=== PATIENT | male | born 2000 | race Caucasian/White ===

== ENCOUNTER 2019-01-18 01:27 | Emergency (ER) | payer BC ==
--- NOTE | 2019-01-18 01:57 | EDPHYS ---
Physician Documentation [facility] Name: Clark Luu Age: 18 yrs Sex: Male : 2000 Arrival Date: 01/18/2019 Time: 01:33 Bed 13 Private MD: ED Physician Rodri Pelletier HPI: 01/18 01:46 This 18 yrs old Male presents to ER via Ambulatory with complaints of Animal jmm Bite. 01:46 by a raccoon. Onset: The symptoms/episode began/occurred acutely, at 00:30. Animal jmm information: Patient/Caregiver unable to provide information related to the animal. This is a 18 year old male with a history of ADD/ADHD that presents to the ED with complaints of raccoon bite approx 1 hour prior to arrival. Patient states the raccoon was squirming while being held and bit him. Patient states the raccoon did not appear ill. Patient states cleaning the wound immediately. . Historical: - Allergies: 01:37 No Known Allergies; ed1 - Home Meds: 01:37 Vyvanse 20 mg oral cap once daily [Active]; ed1 - PMHx: 01:37 ADD/ADHD; ed1 - PSHx: 01:37 None; ed1 - Immunization history:: Adult Immunizations up to date. - Social history:: Smoking status: Patient uses tobacco products, smokes one-half pack cigarettes per day. - Ebola Screening: : Patient negative for fever greater than or equal to 101.5 degrees Fahrenheit, and additional compatible Ebola Virus Disease symptoms Patient denies exposure to infectious person Patient denies travel to an Ebola-affected area in the 21 days before illness onset No symptoms or risks identified at this time. ROS: 02:01 Constitutional: Negative for fever, chills, and weight loss, Cardiovascular: Negative jmm for chest pain, palpitations, and edema, Respiratory: Negative for shortness of breath, cough, wheezing, and pleuritic chest pain. 02:01 MS/extremity: Positive for injury or acute deformity. 02:01 Skin: Positive for puncture. 02:01 All other systems are negative. Exam: 02:01 Constitutional: This is a well developed, well nourished patient who is awake, alert, jmm and in no acute distress. Head/Face: atraumatic. Eyes: EOMI, no conjunctival erythema appreciated ENT: Moist Mucus Membranes Neck: Trachea midline, Supple Chest/axilla: Normal chest wall appearance and motion. Cardiovascular: Regular rate and rhythm. No edema appreciated Respiratory: Normal respirations, no respiratory distress appreciated Abdomen/GI: Non distended, soft Back: Normal ROM 02:01 Skin: small puncture noted to the dorsum of the left 3rd distal finger, no surrounding erythema or induration appreciated. 02:01 Neuro: Orientation: is normal, Mentation: is normal, Memory: is normal. 02:01 Psych: Behavior/mood is pleasant, cooperative. Vital Signs: 01:37 BP 137 / 66; Pulse 83; Resp 16; Temp 98(O); Pulse Ox 98% on R/A; Weight 73.94 kg; ed1 Height 5 ft. 11 in. (180.34 cm); Pain 0/10; 01:37 Body Mass Index 22.73 (73.94 kg, 180.34 cm) ed1 MDM: 01:43 Patient medically screened. phi 01:55 Data reviewed: vital signs, nurses notes. Counseling: I had a detailed discussion with phi the patient and/or guardian regarding: the historical points, exam findings, and any diagnostic results supporting the discharge/admit diagnosis, the need for outpatient follow up, to return to the emergency department if symptoms worsen or persist or if there are any questions or concerns that arise at home. ED course: Patient prescribed oral antibiotics and advised of the need for rabies immunoglobin therapy. patient understood and agrees with the plan of care. . Administered Medications: 02:12 Drug: Tetanus-Diphtheria Toxoid Adult 0.5 ml {City Constable: [employer]. Exp: ed1 10/11/2020. Lot #: [id number]. } Route: IM; Site: left deltoid; 02:14 Follow up: Response: Medication administered at discharge. ed1 Disposition: 01/18/19 01:56 Discharged to Home. Impression: Animal Bite. - Condition is Stable. - Discharge Instructions: Animal Bite. - Prescriptions for Augmentin 875- 125 mg Oral Tablet - take 1 tablet by ORAL route every 12 hours for 10 days; 20 tablet. - Medication Reconciliation Form, Thank You Letter, Antibiotic Education, Prescription Opioid Use form. - Follow up: Private Physician; When: 2 - 3 days; Reason: Recheck today's complaints, Continuance of care, Re-evaluation by your physician. Addendum: 01/22/2019 16:33 Co-signature as Attending Physician, Rodri Pelletier MD I agree with the assessment and t w4 plan of care. Signatures: Camron Romero PA PA jmm Riggs, Erika, RN RN ed1 Rodri Pelletier MD MD tw4 Corrections: (The following items were deleted from the chart) 01/18 02:14 01:56 01/18/2019 01:56 Discharged to Home. Impression: Animal Bite. Condition is ed1 Stable. Forms are Medication Reconciliation Form, Thank You Letter, Antibiotic Education, Prescription Opioid Use. Follow up: Private Physician; When: 2 - 3 days; Reason: Recheck today's complaints, Continuance of care, Re-evaluation by your physician. phi
--- NOTE | 2019-01-18 01:57 | ER ---
Nurse's Notes [facility] Name: Clark Luu Age: 18 yrs Sex: Male : 2000 Arrival Date: 01/18/2019 Time: 01:33 Bed 13 Private MD: Diagnosis: Animal Bite Presentation: 01/18 01:36 Presenting complaint: Patient states: I was holding a baby raccoon and it bit me on my ed1 left middle finger. I need a rabies shot. Transition of care: patient was not received from another setting of care. Onset of symptoms was January 18, 2019. Risk Assessment: Do you want to hurt yourself or someone else? Patient reports no desire to harm self or others. Initial Sepsis Screen: Does the patient meet any 2 criteria? No. Patient's initial sepsis screen is negative. Does the patient have a suspected source of infection? No. Patient's initial sepsis screen is negative. Care prior to arrival: None. 01:36 Method Of Arrival: Ambulatory ed1 01:36 Acuity: MADELIN 5 ed1 Triage Assessment: 01:37 Bite description: bite sustained to dorsal aspect of distal phalanx of left middle ed1 finger is from animal, was sustained 1-2 hours ago. by a raccoon animal information: vaccination(s) is not applicable. General: Appears in no apparent distress. Behavior is calm, cooperative, Pt texting on phone during triage. Pain: Complains of pain in dorsal aspect of distal phalanx of left middle finger Pain currently is 0 out of 10 on a pain scale. Derm: Skin is intact, is healthy with good turgor, Skin is dry, Skin is normal, Skin temperature is warm. Musculoskeletal: Circulation, motion, and sensation intact. Range of motion: intact in all extremities, Swelling absent. Historical: - Allergies: 01:37 No Known Allergies; ed1 - Home Meds: 01:37 Vyvanse 20 mg oral cap once daily [Active]; ed1 - PMHx: 01:37 ADD/ADHD; ed1 - PSHx: 01:37 None; ed1 - Immunization history:: Adult Immunizations up to date. - Social history:: Smoking status: Patient uses tobacco products, smokes one-half pack cigarettes per day. - Ebola Screening: : Patient negative for fever greater than or equal to 101.5 degrees Fahrenheit, and additional compatible Ebola Virus Disease symptoms Patient denies exposure to infectious person Patient denies travel to an Ebola-affected area in the 21 days before illness onset No symptoms or risks identified at this time. Screenin:12 Abuse screen: Denies threats or abuse. Denies injuries from another. Nutritional ed1 screening: No deficits noted. Tuberculosis screening: No symptoms or risk factors identified. Fall Risk None identified. Assessment: 02:12 General: Appears in no apparent distress. Behavior is calm, cooperative. Pain: Denies ed1 pain. Neuro: Level of Consciousness is awake, alert, obeys commands, Oriented to person, place, time, situation. Cardiovascular: Denies chest pain, Heart tones S1 S2 present. Respiratory: Airway is patent Respiratory effort is even, unlabored, Respiratory pattern is regular, symmetrical, Breath sounds are clear bilaterally. GI: No signs and/or symptoms were reported involving the gastrointestinal system. : No signs and/or symptoms were reported regarding the genitourinary system. EENT: No signs and/or symptoms were reported regarding the EENT system. Derm: Skin is intact, is healthy with good turgor, Skin is dry, Skin is pink, warm \T\ dry. Skin temperature is warm. Musculoskeletal: Circulation, motion, and sensation intact. Range of motion: intact in all extremities. Injury Description: Bite sustained to dorsal aspect of distal phalanx of left middle finger caused by a raccoon, is from animal, was sustained 1-2 hours ago. Vital Signs: 01:37 BP 137 / 66; Pulse 83; Resp 16; Temp 98(O); Pulse Ox 98% on R/A; Weight 73.94 kg; ed1 Height 5 ft. 11 in. (180.34 cm); Pain 0/10; 01:37 Body Mass Index 22.73 (73.94 kg, 180.34 cm) ed1 ED Course: 01:33 Patient arrived in ED. ag3 01:36 Triage completed. ed1 01:37 Arm band placed on left wrist. ed1 01:39 Camron Romero PA is PHCP. jmm 01:42 Rodri Pelletier MD is Attending Physician. [facility] 02:12 Patient has correct armband on for positive identification. ed1 02:12 No provider procedures requiring assistance completed. Patient did not have IV access ed1 during this emergency room visit. Administered Medications: 02:12 Drug: Tetanus-Diphtheria Toxoid Adult 0.5 ml {Brake Mechanic: [employer]. Exp: ed1 10/11/2020. Lot #: [id number]. } Route: IM; Site: left deltoid; 02:14 Follow up: Response: Medication administered at discharge. ed1 Outcome: 01:56 Discharge ordered by MD. yip 02:12 Discharged to home ambulatory. ed1 02:12 Condition: good 02:12 Discharge instructions given to patient, Instructed on discharge instructions, follow up and referral plans. medication usage, Demonstrated understanding of instructions, follow-up care, medications, Prescriptions given X 1. 02:14 Patient left the ED. ed1 Signatures: Camron Romero PA PA jmm Riggs, Erika, RN RN ed1 Aparna Camejo ag3
[2019-01-18] MEDS ORDERED: TETANUS & DIPHTHERIA TOX,ADULT 0.5 ML VIAL ONE (02:22)
== END 2019-01-18 02:14 | disposition home or self-care (01) ==
LOC: ER 01:27
DX: S61.253A Open bite of left middle finger without damage to nail, initial encounter (principal); W55.51XA Bitten by raccoon, initial encounter; Z23 Encounter for immunization; F90.9 Attention-deficit hyperactivity disorder, unspecified type
CPT/HCPCS: 90471; 90714; 99283

== ENCOUNTER 2020-02-23 14:45 | Emergency (ER) | payer BC ==
--- NOTE | 2020-02-23 16:41 | RAD REPORT ---
EXAM DESCRIPTION: RAD - Ankle Left 3 View -02/23/2020 4:17 pm CLINICAL HISTORY: Left ankle pain status post injury FINDINGS: No fracture or dislocation is seen.
--- NOTE | 2020-02-23 16:43 | RAD REPORT ---
EXAM DESCRIPTION: RAD - Foot Left 3 View - 02/23/2020 4:17 pm CLINICAL HISTORY: Left Foot pain status post fall FINDINGS: No fracture or dislocation is seen.
--- NOTE | 2020-02-23 16:44 | RAD REPORT ---
EXAM DESCRIPTION: RAD - Knee Left 3 View - 02/23/2020 4:17 pm CLINICAL HISTORY: Left knee pain status post injury FINDINGS: No fracture or dislocation is seen.
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
[2020-02-23 17:58] VITALS: BP 125/74; TEMP 99; O2SAT 99
== END 2020-02-23 17:43 | disposition home or self-care (01) ==
LOC: ER 14:45
DX: M25.572 Pain in left ankle and joints of left foot (principal); F90.9 Attention-deficit hyperactivity disorder, unspecified type; Z72.0 Tobacco use
CPT/HCPCS: 99283

== ENCOUNTER 2023-02-24 20:37 | Emergency (ER) | payer BC ==
--- OUTSIDE RECORDS SUMMARY | 2023-02-24 20:40 | XMS REPORT | Continuity of Care Document ---
:2000 Author Organization [facility] t Address [address] [place] [address] Care Team Providers Name Role Phone Jaky Huertas Primary Care Physician Cheko Sahni DO Attending Clinician CHEKO SAHNI Attending Clinician Unavailable Problems This patient has no known problems. Allergies, Adverse Reactions, Alerts Allergy Allergy Status Severity Reaction(s) Onset Inactive Treating Comm ents Source Name Type Date Date Clinician NO KNOWN Drug Active Univers ALLERGIE Class ity of [facility] Social History Social Habit Start Date Stop Date Quantity Comments Source Gender identity [facility] Sexual orientation [facility] Sex Assigned At [birth year] [facility] versity [facility] 00:00:00 00:00:00 Medical Branch Smoking Status Start Date Stop Date Source Tobacco smoking consumption [facility] Branch Medications Ordered Filled Start Stop Current Ordering Indication Dosage Frequency Signature Comments Components Source Medication Medication Date Date Medication? Clinician (SIG) Name Name NaCl 0.9% 2022-0 2023- No 1000mL at 999 Uni vers (NS) bolus 7-11 07-11 mL/hr, ity of infusion 19:15: 21:27 1,000 mL, Nathan as 1,000 mL 00 :00 IV Medical Infusion, Branch ONCE, 1 dose, On Mon02/21/23 at 1415, STAT sucralfate 2022-0 Yes [id number] 1g Take 1 Univers 1 gram 7-11 tablet by ity of tablet 00:00: mouth [place] 00 before Medical meals and Branch at bedtime. dicyclomine Yes [id number] 10mg Take 1 Univers (BENTYL) 10 7-11 capsule by it y of mg capsule 00:00: mouth [place] 00 every 8 Medical (eight) Branch hours as needed for Abdominal pain. ondansetron Yes [id number] 4mg Take 1 Univers 4 mg 7-11 tablet by ity of disintegrat 00:00: mouth [place] ing tablet 00 every 8 Medica l (eight) Branch hours as needed for Nausea and Vomiting (N/V). omeprazole 2022- Yes [id number] 20mg Take 1 Univers 20 mg 7-11 08-11 capsule by ity of capsule 00:00: 04:59 mouth in [place] 00 :00 the Medical morning Branch for 30 days. Vital Signs Vital Name Observation Time Observation Value Comments Source Systolic blood 2023-02-21 21:28:00 112 mm[Hg] [facility] Diastolic blood 2023-02-21 21:28:00 55 mm[Hg] [facility] Heart rate 2023-02-21 21:28:00 98 /min [facility] Respiratory rate 2023-02-21 21:28:00 19 /min [facility] Oxygen saturation in 2023-02-21 21:28:00 99 /min [facility] Arterial blood by [facility] Pulse oximetry [place] Body temperature 2023-02-21 18:58:[address] [facility] Body height 2023-02-21 18:58:00 182.9 cm [facility] Body weight 2023-02-21 18:58:00 94.348 kg [facility] BMI 2023-02-21 18:58:00 28.21 kg/m2 [facility] Procedures Procedure Date / Time Performed Performing Clinician Sourc e TROPONIN I 2023-02-21 19:42:00 Sahni, [facility] COMP. METABOLIC PANEL 2023-02-21 19:42:00 Cheko Sahni [facility] ([id number]) [facility] CBC WITH DIFF 2023-02-21 19:42:00 Singer [facility] URINALYSIS 2023-02-21 19:42:00 Singer [facility] NOTICE OF PRIVACY 2023-02-21 18:54:28 Doctor Unassigned, No [facility] PRACTICES Name Medical Branch CONSENT/REFUSAL FOR 2023-02-21 18:53:26 [facility] AND Name Medical Branch TREATMENT Encounters Start End Encounter Admission Attending Care Care Encounter Source Date/Time Date/Time Type Type Clinicians Facility Department ID 2023-02-21 2023-02-21 [id number] Univers 13:59:00 16:30:00 Cheko JONES [id number] i amy [facility] [id number] [facility] [id number] [facility] 084 Branch 2023-02-21 2023-02-21 Emergency X [facility] ERT [id number] Univers 13:59:00 16:30:00 CHEKO chris [facility] Results Test Description Test Time Test Comments Results Result Comments Source TROPONIN I 2023-02-21 20:38:24 Test Item Value Reference Range Interpretation Comme nts TROPONIN I (test code = 1818518025) 0.034 ng/mL <=0.034 BRAD (test code = BRAD) Reference (Normal) Range (defined by the 99th percentile reference limit): <= 0.034 ng/mL Note: Cardiac troponin begins to rise 3-4 hours after the onset of ischemia. Repeat in 4-6 hours if the sample was drawn within 3-4 hours of the onset of the symptom and found normal. Diagnosis of myocardial injury is made with acute changes in cTn concentrations with at least one serial sample above the 99th percentile upper reference limit (URL), taken together with the patient's clinical presentation. Biotin has been reported to cause a negative bias, interpret results relative to patient's use of biotin. Lab Interpretation (test code = Normal 79894-6) [facility][id number][facility]2023-02-21 20:27:04 Test Item Value Reference Range Interpretation Comments NA (test code = 136 mmol/L 135-145 3763973891) K (test code = 4.9 mmol/L 3.5-5.0 0914497559) CL (test code = 93 mmol/L 98-108 L 6642857364) CO2 TOTAL (test code = 32 mmol/L 23-31 H 2048673492) AGAP (test code = 11 2-16 2921452411) BUN (test code = 13 mg/dL 7-23 0050445160) GLUCOSE (test code = 91 mg/dL 70-110 5048122788) CREATININE (test code = 0.88 mg/dL 0.60-1.25 6110395412) TOTAL BILI (test code = 1.0 mg/dL 0.1-1.0 8045504191) CALCIUM (test code = 10.7 mg/dL 8.6-10.6 H 1939257197) T PROTEIN (test code = 7.9 g/dL 6.3-8.2 5945356079) ALBUMIN (test code = 4.8 g/dL 3.5-5.0 1576058911) ALK PHOS (test code = 38 U/L 34-122 4462013045) ALTv (test code = 32 U/L 5-50 1742-6) AST(SGOT) (test code = 37 U/L 13-40 3386098871) eGFR (test code = 106.4 mL/min/1.73m2 9438981698) BRAD (test code = BRAD) Association of Glomerular Filtration Rate (GFR) and Staging of Kidney Disease* + --+ --+ ------+| GFR (mL/min/1.73 m2) ?| With Kidney Damage ?| ?Without Kidney Damage+ --------+ --------+ +| ?>90 ?| ?Stage one ?| ? Normal ?+ ---+ ---+ -------+| ?60-89 ?| ?Stage two ?| ? Decreased GFR ? + --+ --+ ------+| ?30-59 ?| ?Stage three ?| ? Stage three ? + --+ --+ ------+| ?15-29 ?| ?Stage four ? | ? Stage four ?+ ---+ ---+ -------+| ?<15 (or dialysis) ? ?| ?Stage five ? | ? Stage five ?+ ---+ ---+ -------+ *Each stage assumes the associated GFR level has been in effect for at least three months. ?Stages 1 to 5, with or without kidney disease, indicate chronic kidney disease. Notes: Determination of stages one and two (with eGFR >59mL/min/1.73 m2) requires estimation of kidney damage for at least three months as defined by structural or functional abnormalities of the kidney, manifested by either:Pathological abnormalities or Markers of kidney damage (including abnormalities in the composition of the blood or urine or abnormalities in imaging tests). Lab Interpretation Abnormal (test code = 25452-1) [facility] WITH [id number] 20:18:00 Test Item Value Reference Range Interpretation Comments WBC (test code = 10.59 See_Comment [Automated 7906-2) message] The sy stem which generated this result transmitted reference range : 4.20 - 10.70 10*3/?L. The reference range was not used to interpret this result as normal/abnormal . RBC (test code = 5.26 See_Comment [Automated 519-8) message] The sy stem which generated this result transmitted reference range : 4.26 - 5.52 10*6/?L. The reference range was not used to interpret this result as normal/abnormal . HGB (test code = 16.2 g/dL 12.2-16.4 718-7) HCT (test code = 49.6 % 38.4-49.3 H 4544-3) MCV (test code = 94.3 fL 81.7-95.6 787-2) MCH (test code = 30.8 pg 26.1-32.7 785-6) MCHC (test code = 32.7 g/dL 31.2-35.0 786-4) RDW-SD (test code = 47.2 fL 38.5-51.6 16959-2) RDW-CV (test code = 13.5 % 12.1-15.4 788-0) PLT (test code = 385 See_Comment H [Automated 777-3) message] The sy stem which generated this result transmitted reference range : 150 - 328 10*3/ ?L. The reference r ravinder was not used to interpret this result as normal/abnormal . MPV (test code = 9.3 fL 9.8-13.0 L 61886-9) NRBC/100 WBC (test 0.0 See_Comment [Automat ed code = 4783264623) message] The system which generated this result transmitted reference range : 0.0 - 10.0 /100 WBCs. The refer ence range was not u sed to interpret th is result as normal/abnormal . NRBC x10^3 (test code See_Comment [Auto mated = 7700890812) message] The s ystem which generated this result transmitted reference range : 10*3/?L. The reference range was not used to interpret this result as normal/abnormal . GRAN MAT (NEUT) % 70.5 % (test code = 770-8) IMM GRAN % (test code 0.30 % = 2518149188) LYMPH % (test code = 20.3 % 736-9) MONO % (test code = 7.2 % 5905-5) EOS % (test code = 1.0 % 713-8) BASO % (test code = 0.7 % 706-2) GRAN MAT x10^3(ANC) 7.47 10*3/uL 1.99-6.95 H (test code = 5231175144) IMM GRAN x10^3 (test 0.03 10*3/uL 0.00-0.06 code = 9415579818) LYMPH x10^3 (test code 2.15 10*3/uL 1.09-3.23 = 731-0) MONO x10^3 (test code 0.76 10*3/uL 0.36-1.02 = 742-7) EOS x10^3 (test code = 0.11 10*3/uL 0.06-0.53 711-2) BASO x10^3 (test code 0.07 10*3/uL 0.01-0.09 = 704-7) Lab Interpretation Abnormal (test code = 27897-5) [facility]"
[2023-02-24] MEDS ORDERED: MORPHINE 4 MG/ML SYR ONE (21:53)
[2023-02-24] MEDS ORDERED: ONDANSETRON 4 MG/2 ML VIAL ONE (21:53)
[2023-02-24] MEDS ORDERED: NA CHLORIDE 0.9% 1,000 ML ONE (21:54)
[2023-02-24 21:56] LABS: Absolute Lymphocytes (CBC) 1.6 K/uL (0.7-4.9); Hematocrit 43.7 % (39.6-49.0); Lymphocytes % 16.2 % (15.3-44.8); MCV 92.4 fL (80-100); MPV 7.5 fL (7.6-11.3); RBC Red Blood Cell Count 4.73 M/uL (4.33-5.43)
[2023-02-24 22:13] LABS: Albumin 3.4 g/dL (3.4-5.0); Bilirubin Total 0.3 mg/dL (0.2-1.0); Potassium 3.8 mEq/L (3.5-5.1); Protein, Total 7.1 g/dL (6.4-8.2)
--- NOTE | 2023-02-24 23:12 | RAD REPORT ---
EXAM DESCRIPTION: CTAbdomen Pelvis W Contrast - 02/24/2023 10:27 pm CLINICAL HISTORY: RLQ PAIN COMPARISON: No comparisons TECHNIQUE: CT of the abdomen and pelvis was performed. All CT scans are performed using dose optimization technique as appropriate and may include automated exposure control or mA/KV adjustment according to patient size. FINDINGS: Lower chest: No acute abnormality. Liver: No acute abnormality or suspicious lesions. Biliary: No biliary ductal dilatation. Stomach: No significant focal abnormality. Duodenum: No significant focal abnormality. Pancreas: No significant abnormality. Spleen: No significant abnormality. Adrenal: No suspicious lesions. Kidney/ureter: No hydronephrosis. No renal calculi. Too small to characterize and/or benign appearing renal lesions are noted. Retroperitoneum: No retroperitoneal adenopathy. Vascular: No aneurysm. Bowel: Normal appendix.. Peritoneum: No ascites or free air. Enlarged ileocolic mesenteric lymph nodes Bladder: Grossly unremarkable. Reproductive: No adnexal masses. Bones: No acute fracture. Other: n/a IMPRESSION: No acute intra-abdominal or pelvic finding. Normal appendix. Nonspecific enlarged ileoco lic mesenteric lymph nodes. Mesenteric adenitis is a consideration .
[2023-02-24 23:28] LABS: Specific Gravity > 1.030 (1.005-1.030); Urine Bacteria None Seen /HPF (<20); Urine Bilirubin NEGATIVE (Negative); Urine Blood Trace (Negative); Urine Clarity Clear (Clear); Urine Color Light-Yellow (Yellow); Urine Glucose NEGATIVE (Negative); Urine Mucus Slight /HPF (None Seen); Urine Protein NEGATIVE (Negative); Urine RBC <5 /HPF (None Seen); Urine Urobilinogen Normal (Normal); Urine pH 6.5 (5.0-7.0)
--- NOTE | 2023-02-24 23:46 | ER ---
Nurse's Notes [facility] Name: Clark Luu Age: 22 yrs Sex: Male : 2000 Arrival Date: 02/24/2023 Time: 20:37 Bed 15 Private MD: Diagnosis: Nonspecific mesenteric lymphadenitis Presentation: 02/24 21:50 Chief complaint: Patient states: right lower quadrant pain X1 week and worsening. seen lg3 at [facility] ER wed. diagnosed with acid reflux. started dicyclomine, sucralfate, and Prilosec but nothings working. Coronavirus screen: Client denies travel out of the [place] in the last 14 days. At this time, the client does not indicate any symptoms associated with coronavirus-19. Ebola Screen: No symptoms or risks identified at this time. Initial Sepsis Screen: Does the patient meet any 2 criteria? No. Patient's initial sepsis screen is negative. Does the patient have a suspected source of infection? No. Patient's initial sepsis screen is negative. Risk Assessment: Do you want to hurt yourself or someone else? Patient reports no desire to harm self or others. Onset of symptoms is unknown. 21:50 Method Of Arrival: Ambulatory lg3 21:50 Acuity: MADELIN 3 lg3 Triage Assessment: 21:54 General: Appears in no apparent distress. uncomfortable, Behavior is calm, cooperative. lg3 Pain: Complains of pain in right lower quadrant Pain currently is 9 out of 10 on a pain scale. Noted to be guarding, moaning, resistant to movement. EENT: No deficits noted. No signs and/or symptoms were reported regarding the EENT system. Neuro: No deficits noted. Bunch Agitation-Sedation Scale (RASS): 0 - Alert and Calm Level of Consciousness is awake, alert, obeys commands, Oriented to person, place, time, situation. Cardiovascular: No deficits noted. Denies chest pain, shortness of breath. Respiratory: No deficits noted. Airway is patent Respiratory effort is even, unlabored, Respiratory pattern is regular, symmetrical. GI: Abdomen is flat, non-distended, Abd is soft X 4 quads Abdomen is tender to palpation in right lower quadrant Abdomen has rebound tenderness in right lower quadrant Guarding noted in right lower quadrant. : No deficits noted. No signs and/or symptoms were reported regarding the genitourinary system. Derm: No deficits noted. No signs and/or symptoms reported regarding the dermatologic system. Musculoskeletal: No deficits noted. No signs and/or symptoms reported regarding the musculoskeletal system. Circulation, motion, and sensation intact. Range of motion: intact in all extremities. Historical: - Allergies: 21:54 No Known Allergies; lg3 - Home Meds: 21:54 Adderall XR Oral [Active]; lg3 - PMHx: 21:54 ADD/ADHD; lg3 - PSHx: 21:54 None; lg3 - Immunization history:: Adult Immunizations up to date, Client reports having NOT received the Covid vaccine. - Social history:: Smoking status: Reported history of juuling and/or vaping. Patient uses alcohol, occasionally. Screenin:58 [facility] ED Fall Risk Assessment (Adult) History of falling in the last 3 months, rv including since admission No falls in past 3 months (0 pts) Confusion or Disorientation No (0 pts) Intoxicated or Sedated No (0 pts) Impaired Gait No (0 pts) Mobility Assist Device Used No (0 pt) Altered Elimination No (0 pt) Score/Fall Risk Level 0 - 2 = Low Risk Oriented to surroundings, Maintained a safe environment, Educated pt \T\ family on fall prevention, incl call for assistance when getting out of bed, Assessed \T\ reinforced patient's understanding of fall precautions, Provided non-skid footwear, Hourly rounding (assess needs \T\ fall precautionary measures) done, Used ambulatory aids as needed (educated on \T\ assisted with), Used gait belt as appropriate. Abuse screen: Denies threats or abuse. Denies injuries from another. Nutritional screening: No deficits noted. Tuberculosis screening: No symptoms or risk factors identified. Assessment: 22:58 General: Appears in no apparent distress. Behavior is calm, cooperative. Pain: rv Complains of pain in abdomen. Neuro: Level of Consciousness is awake, alert, obeys commands, Oriented to person, place, time, situation. Cardiovascular: Capillary refill < 3 seconds. Respiratory: Airway is patent. GI: Bowel sounds present X 4 quads. Reports lower abdominal pain, upper abdominal pain, nausea, vomiting. GI: Abdomen is flat, Abd is soft and non tender X 4 quads. : No signs and/or symptoms were reported regarding the genitourinary system. Vital Signs: 21:50 BP 131 / 77; Pulse 94; Resp 17 S; Temp 98.8(O); Pulse Ox 99% on R/A; Weight 95.25 kg lg3 (R); Height 6 ft. 0 in. (R); Pain 9/10; 21:50 Body Mass Index 28.48 (95.25 kg, 182.88 cm) lg3 21:50 Pain Scale: Adult lg3 ED Course: 20:39 Patient arrived in ED. kd3 20:48 Taylor Gama PA-C is PHCP. sb4 20:48 Virginia Sotelo MD is Attending Physician. sb4 21:25 Radiology exam delayed due to lab results not completed at this time. (BUN/Creatinine) eh4 IV insertion attempt and/or patient not having appropriate IV at this time. 21:47 Inserted saline lock: 20 gauge in left antecubital area, using aseptic technique. Blood oe collected. 21:48 CBC with Diff Sent. oe 21:48 CMP Sent. oe 21:48 Lipase Sent. oe 21:54 Triage completed. lg3 21:54 Arm band placed on right wrist. lg3 22:58 Isrrael Montes, RN is Primary Nurse. rv 22:59 No provider procedures requiring assistance completed. rv 22:59 Patient has correct armband on for positive identification. Placed in gown. Bed in low rv position. Call light in reach. Side rails up X 1. Client placed on continuous cardiac and pulse oximetry monitoring. NIBP monitoring applied. 23:07 CT Abd/Pelvis - IV Contrast Only In Process Unspecified. EDMS 23:45 Myke Wise MD is Referral Physician. sb4 23:45 Referral Physician role handed off by Myke Wise MD sb4 02/25 00:01 IV discontinued, intact, bleeding controlled, No redness/swelling at site. Pressure rv dressing applied. 00:01 Provided Education on: VIRUS. rv Administered Medications: 02/24 21:49 Drug: NS 0.9% IV 1000 ml Route: IV; Rate: 1 bolus; Site: left antecubital; kd3 02/25 00:01 Follow up: IV Status: Completed infusion; IV Intake: 1000ml rv 02/24 21:49 Drug: Ondansetron IVP 4 mg Route: IVP; Site: left antecubital; kd3 02/25 00:01 Follow up: Response: No adverse reaction; Marked relief of symptoms rv 02/24 21:50 Drug: morphine IVP or IV 4 mg Route: IVP; Infused Over: 4 mins; Site: left antecubital; kd3 02/25 00:01 Follow up: Response: No adverse reaction; Marked relief of symptoms rv Medication: 02/24 22:59 VIS not applicable for this client. rv Intake: 02/25 00:01 IV: 1000ml; Total: 1000ml. rv Outcome: 02/24 23:45 Discharge ordered by MD. moreira 02/25 00:01 Discharged to home ambulatory, with family. rv Condition: good Discharge instructions given to patient, Instructed on discharge instructions, follow up and referral plans. medication usage, Demonstrated understanding of instructions, follow-up care, medications, Prescriptions given X 1. 00:02 Patient left the ED. rv Signatures: Dispatcher [employer] EDMS Gavino Bush Ronaldo, RN RN Sadaf Garcia, MYRON SANCHES lg3 Lona Romero RN RN kd3 [place] [id number] Taylor Gama PA-Johnie PAZoey sb4
--- NOTE | 2023-02-24 23:46 | EDPHYS ---
Physician Documentation [facility] Name: Clark Luu Age: 22 yrs Sex: Male : 2000 Arrival Date: 02/24/2023 Time: 20:37 Bed 15 Private MD: ED Physician Virginia Sotelo HPI: 02/24 22:09 This 22 yrs old Male presents to ER via Ambulatory with complaints of Abdominal Pain, sb4 Nausea/Vomiting. 22:09 The patient presents with abdominal pain right lower quadrant. Onset: The sb4 symptoms/episode began/occurred last week. The symptoms radiate to back. Associated signs and symptoms: Pertinent positives: nausea and vomiting, dysuria, fever, Pertinent negatives: diarrhea, shortness of breath, testicular pain. Modifying factors:. 22 year old male presents with RLQ abdominal pain. States last week he had a syncopal episode at work and was evaluated at [place] [facility]. He was experiencing some mild abdominal pain then but it was not worked up. He was diagnosed with acid reflux and dehydration and discharged. he states the pain has gradually gotten worse and could no longer stand it today. he reports associated n/v. states it radiates to his back and also reports subjective fever. Historical: - Allergies: 21:54 No Known Allergies; lg3 - Home Meds: 21:54 Adderall XR Oral [Active]; lg3 - PMHx: 21:54 ADD/ADHD; lg3 - PSHx: 21:54 None; lg3 - Immunization history:: Adult Immunizations up to date, Client reports having NOT received the Covid vaccine. - Social history:: Smoking status: Reported history of juuling and/or vaping. Patient uses alcohol, occasionally. ROS: 22:09 Eyes: Negative for injury, pain, redness, and discharge, Cardiovascular: Negative for sb4 chest pain, palpitations, and edema, Respiratory: Negative for shortness of breath, cough, wheezing, and pleuritic chest pain, Skin: Negative for injury, rash, and discoloration, Neuro: Negative for headache, weakness, numbness, tingling, and seizure. 22:09 Constitutional: Positive for body aches, chills, fatigue, fever, Negative for 22:09 Abdomen/GI: Positive for abdominal pain, nausea and vomiting, Negative for diarrhea, constipation, dysphagia, hematemesis. 22:09 : Positive for burning with urination, Negative for hematuria, penile pain, testicular pain 22:09 All other systems are negative. Exam: 22:09 Constitutional: This is a well developed, well nourished patient who is awake, alert, sb4 and in no acute distress. Head/Face: Normocephalic, atraumatic. Eyes: Extra-ocular motions intact. Periorbital areas with no swelling, redness, or edema. ENT: Mucous membranes moist. Cardiovascular: Regular rate and rhythm with a normal S1 and S2. Respiratory: Lungs have equal breath sounds bilaterally, clear to auscultation and percussion. No rales, rhonchi or wheezes noted. No increased work of breathing, no retractions or nasal flaring. Skin: Warm, dry with normal turgor. Normal color with no rashes, no lesions, and no evidence of cellulitis. MS/ Extremity: Pulses equal, no cyanosis. Neurovascular intact. Full, normal range of motion. Neuro: Awake and alert, GCS 15, oriented to person, place, time, and situation. Cranial nerves II-XII grossly intact. Motor strength 5/5 in all extremities. Sensory grossly intact. Cerebellar exam normal. Normal gait. 22:09 Abdomen/GI: Exam negative for bruising, distension, guarding, masses, Inspection: abdomen appears normal, Bowel sounds: normal, Palpation: soft, in all quadrants, mild abdominal tenderness, in the right upper quadrant. Vital Signs: 21:50 BP 131 / 77; Pulse 94; Resp 17 S; Temp 98.8(O); Pulse Ox 99% on R/A; Weight 95.25 kg lg3 (R); Height 6 ft. 0 in. (R); Pain 9/10; 21:50 Body Mass Index 28.48 (95.25 kg, 182.88 cm) lg3 21:50 Pain Scale: Adult lg3 MDM: 20:48 Patient medically screened. sb4 22:09 Differential diagnosis: appendicitis, bowel obstruction, cholecystitis, Cholelithiasis, sb4 diverticulitis, gastroesophageal reflux disease, non-specific abd pain, Prostatitis, Pyelonephritis, Ureterolithiasis, nephrolithiasis. 02/25 02:49 Data reviewed: vital signs, nurses notes, lab test result(s), radiologic studies, I sb4 have discussed the patient's presentation/case with the attending Emergency Department Physician; and as a result, I will discharge patient. I considered the following discharge prescriptions or medication management in the emergency department Antibiotics: At this time antibiotics are not recommended. Counseling: I had a detailed discussion with the patient and/or guardian regarding: the historical points, exam findings, and any diagnostic results supporting the discharge/admit diagnosis, lab results, radiology results, to return to the emergency department if symptoms worsen or persist or if there are any questions or concerns that arise at home. Medication response: morphine relieved the patient's pain. Symptoms have resolved. 02/24 21:18 Order name: CBC with Diff; Complete Time: 22:00 4 02/24 21:18 Order name: CMP; Complete Time: 22:14 4 02/24 21:18 Order name: Lipase; Complete Time: 22:14 4 02/24 22:08 Order name: UAM; Complete Time: 23:31 4 02/24 21:18 Order name: CT Abd/Pelvis - IV Contrast Only; Complete Time: 23:31 4 02/24 21:18 Order name: IV Saline Lock; Complete Time: 21:48 sb4 02/24 21:18 Order name: Labs collected and sent; Complete Time: 21:48 sb4 Administered Medications: 02/24 21:49 Drug: NS 0.9% IV 1000 ml Route: IV; Rate: 1 bolus; Site: left antecubital; [facility] 02/25 00:01 Follow up: IV Status: Completed infusion; IV Intake: 1000ml rv 02/24 21:49 Drug: Ondansetron IVP 4 mg Route: IVP; Site: left antecubital; 3 02/25 00:01 Follow up: Response: No adverse reaction; Marked relief of symptoms rv 02/24 21:50 Drug: morphine IVP or IV 4 mg Route: IVP; Infused Over: 4 mins; Site: left antecubital; [facility] 02/25 00:01 Follow up: Response: No adverse reaction; Marked relief of symptoms rv Disposition: 07:06 STAFF ATTESTATION: The patient's history, exam findings, diagnostics and a summary of sd2 any interventions or procedures was reviewed in detail with the ED MALISSA. I confirm the diagnosis as documented by the MALISSA and I agree with the care plan articulated in the disposition section with regards to our discussion of the patient's case. Virginia Sotelo MD. Disposition Summary: 02/24/23 23:45 Discharge Ordered Location: Home sb4 Problem: new sb4 Symptoms: have improved sb4 Condition: Stable sb4 Diagnosis - Nonspecific mesenteric lymphadenitis sb4 Followup: sb4 - With: - When: As needed - Reason: Recheck today's complaints, Continuance of care, Re-evaluation by your physician Followup: sb4 - With: Private Physician - When: - Reason: Recheck today's complaints, Continuance of care, Re-evaluation by your physician Discharge Instructions: - Discharge Summary Sheet sb4 - Mesenteric Adenitis, Adult sb4 Forms: - Medication Reconciliation Form sb4 - Thank You Letter sb4 - Antibiotic Education sb4 - Prescription Opioid Use sb4 - Patient Portal Instructions sb4 Prescriptions: - Naprosyn 500 mg Oral Tablet - take 1 tablet by ORAL route 2 times per day take with food; 30 tablet; Refills: sb4 0, Product Selection Permitted Signatures: Dispatcher [employer] Sadaf Betancur, RN RN lg3 Lona Romero RN RN kd3 Virginia Sotelo MD MD sd2 Taylor Gama PA-C PA-C sb4 Isrrael Montes RN rv
[2023-02-25 01:46] VITALS: BP 131/77; TEMP 98.8; O2SAT 99
== END 2023-02-25 00:02 | disposition home or self-care (01) ==
LOC: ER 20:37
DX: I88.0 Nonspecific mesenteric lymphadenitis (principal)
CPT/HCPCS: 96361; 85025; 81001; 36415; 83690; 80053; 74177; 96375; 96374; 99284; Q9967; J2405; J7030